=== PATIENT | female | born 1950 | race Caucasian/White ===

== ENCOUNTER → 2021-11-12 | Outpatient (CLI) | payer MEDICARE, SELFPAY ==
--- NOTE | 2021-11-12 17:38 | CT_ITS ---
STUDY: CT Chest W/O Contrast Injection 11/12/2021 7:34 PM REASON FOR EXAM: Female, 71 years old. COUGH Individualized dose optimization techniques were used for this CT. TECHNIQUE: Transaxial imaging was performed withoutIV contrast material. COMPARISON: None. FINDINGS: There are degenerative changes of the shoulders. There is no pneumothorax. There is no demonstrated pleural abnormality. Nodular infiltrate of the right and left upper lobe. Bronchiectasis and mucous filling the right and left midlung. There are calcifications of the coronary arteries. Normal mediastinum. Normal hilar regions. Normal pulmonary arteries. There is atherosclerotic calcification of the aortic arch with tortuosity and elongation of the aortic arch and descending thoracic aorta. There are multi-level degenerative changes of the thoracic spine. There are no acute findings of the upper abdomen. CT/Chest without Contrast IMPRESSION: Nodular infiltrate of the right and left upper lobe. Bronchiectasis and mucous filling the right and left midlung. Electronically Signed: Ken Crook MD at 19:36 EDT ,
== END | disposition home or self-care (01) ==
PROVIDERS: Visit Provider Internal Medicine Pulmonary Disease
DX: R05.9 Cough, unspecified (principal); J30.1 Allergic rhinitis due to pollen
CPT/HCPCS: 71250

== ENCOUNTER 2022-01-05 10:49 | Day surgery (SDC) | payer MEDICARE, SELFPAY ==
[2022-01-05] VITALS (7 sets, daily range): BP systolic 101–127; BP diastolic 56–70; PULSE 72–86; RESP 16; TEMP 36.4–37.1; O2SAT 97–100; BMI 20.2
--- NOTE | 2022-01-05 | FLU_PTH ---
PATIENT: CRISTIAN HARRIS LOC: EN U#:[id number] AGE/SX: 71/F ROOM: RE01/05/[address]: Dr. Zachary Schneider MD : 1950 BED: DIS: 01/05/2022 SPEC #: [id number] RECD: 01/05/22 13:10 STATUS: SYDNEY ELENA #: [id number] ÁNGEL: 01/05/22 00:[address]: Zachary Schneider V DEPT: CYTOLOGY RECD BY: Kay Perla ENTERED: 01/06/22 08:05 SP TYPE: Fluid OTHR DR: No Primary Care Phys Tissues: A - Bronchus of right upper lobe B - Bronchus of right middle lobe Procedures: Special Stain Group II Special Stain Group I Surgery Specimen Level IV AFB Stain (control) GMS Stain (control) Cytospin Fluid HEADER OPERATION: Bronchoscopy, BAL PRE-OP DIAGNOSIS: Bronchiectasis, bronchospasm, allergic rhinitis TISSUE SUBMITTED: A ? RUL BAL fluid, B ? RML BAL fluid DIAGNOSIS CYTOLOGY A. RUL, BAL fluid (cytospin and cell block): Negative for malignant cells. Acute inflammation. See comment. B. RML, BAL fluid (cytospin and cell block): Negative for malignant cells. Acute inflammation. See comment. SJ:stewart 01/07/2022 COMMENT A & B. Special stains for acid fast bacilli and fungi are negative for organisms; matched controls are appropriate. Correlation with clinical, radiologic findings and appropriate follow up are necessary. CYTOLOGY STUDY Slides are reviewed. CYTOLOGY GROSS A - Received is 25 ml of opaque cloudy fluid labeled with the patient's name and and designated per the requisition as RUL BAL. Submitted for cytology preparation including cell block. B - Received is 35 ml of light pink mucoidy cloudy fluid labeled with the patient's name and and designated per the requisition as RML BAL. Submitted for cytology preparation including cell block. / stewart 01/06/2022 TC:2 CPT: 53979 x2, 86144 x2, 47476 x4
[2022-01-05] MEDS: Lactated Ringers 1,000 ML 15 ML IV (11:21)
[2022-01-05] MEDS: Lidocaine 2% (5ml sdv) 5 ML VIAL.MPF (12:07)
[2022-01-05] MEDS: Phenylephrine 0.25% 15 ML NASAL.SRY 15 SPRAY NASAL (12:07)
--- NOTE | 2022-01-05 12:51 | OP.BRONCH_ITS ---
Patient Name: Kimi Langley Procedure Date: 01/05/2022 11:48 AM Date of : 1950 Age: 71 Procedure: Bronchoscopy Indications: Chronic cough with abnormal CT Providers: Zachary Schneider MD Referring MD: Zachary Schneider MD Medicines: Lidocaine applied to nares and subglottic space, None Complications: No immediate complications Procedure: Pre-Anesthesia Assessment: - A History and Physical has been performed. Patient meds and allergies have been reviewed. The risks and benefits of the procedure and the sedation options and risks were discussed with the patient. All questions were answered and informed consent was obtained. Patient identification and proposed procedure were verified prior to the procedure by the physician and the nurse in the procedure room. Mental Status Examination: normal. Airway Examination: normal oropharyngeal airway. Respiratory Examination: clear to auscultation. CV Examination: normal. ASA Grade Assessment: II - A patient with mild systemic disease. After reviewing the risks and benefits, the patient was deemed in satisfactory condition to undergo the procedure. The anesthesia plan was to use monitored anesthesia care (MAC). Immediately prior to administration of medications, the patient was re-assessed for adequacy to receive sedatives. The heart rate, respiratory rate, oxygen saturations, blood pressure, adequacy of pulmonary ventilation, and response to care were monitored throughout the procedure. The physical status of the patient was re-assessed after the procedure. After I obtained informed consent, the scope was passed under direct vision. Throughout the procedure, the patient's blood pressure, pulse, and oxygen saturations were monitored continuously. The bronchoscope was introduced through the left nostril and advanced to the tracheobronchial tree of both lungs. The procedure was accomplished without difficulty. Findings: The endotracheal tube is in good position. The visualized portion of the trachea is of normal caliber. The moira is sharp. The tracheobronchial tree was examined to at least the first subsegmental level. Bronchial mucosa and anatomy are normal; there are no endobronchial lesions, and many secretions. The nasopharynx/oropharynx appears normal. The larynx appears normal. The vocal cords appear normal. The subglottic space is normal. The trachea is of normal caliber. The moira is sharp. The tracheobronchial tree was examined to at least the first subsegmental level. Bronchial mucosa and anatomy are normal; there are no endobronchial lesions, and many secretions. Impression: - The airway examination was normal. - The airway examination was normal. - No specimens collected. - The airway examination was normal. Recommendation: - Await BAL results. MD Zachary Acevedo MD 01/05/2022 12:51:05 PM This report has been signed electronically. Number of Addenda: 0 Note Initiated On: 01/05/2022 11:48 AM
[2022-01-05 13:14] LABS: Cytology, Body Fluid / CSF SEE PATHOLOGY REPORT
[2022-01-05 13:17] LABS: Cytology, Body Fluid / CSF SEE PATHOLOGY REPORT
[2022-01-05 15:19] LABS: Appearance/Body Fluid TURBID; Color/Body Fluid COLORLESS; Source- Body Fluid BRONCHIAL LAVAGE
[2022-01-05 15:23] LABS: Red Cell Count/Body Fluid 200 /mm3; White Blood Count/Body Fluid 3680 /mm3
[2022-01-05 15:24] LABS: Color/Body Fluid COLORLESS; Source- Body Fluid BRONCHIAL LAVAGE
[2022-01-05 15:25] LABS: Appearance/Body Fluid TURBID; Red Cell Count/Body Fluid 448 /mm3
[2022-01-05 15:26] LABS: White Blood Count/Body Fluid 1056 /mm3
[2022-01-05 15:53] LABS: Body Fluid QC Type(s) BF5Q; Lymphocytes 8 %; Neutrophil (Segs) 92 %
[2022-01-05 15:58] LABS: Lymphocytes 5 %; Macrophages 3 %; Neutrophil (Segs) 92 %
[2022-01-05 15:59] LABS: Body Fluid QC Type(s) BF5Q
[2022-01-06 13:19] LABS: Pathologist Comment/Body Fluid Reviewed
== END 2022-01-05 13:23 | disposition home or self-care (01) ==
LOC: EN 10:49 → AC 10:50
PROVIDERS: Referring Provider Internal Medicine Pulmonary Disease; Visit Provider Internal Medicine Pulmonary Disease
PROC: 0BJ08ZZ Inspection of Tracheobronchial Tree, Via Natural or Artificial Opening Endoscopic (ICD-10-PCS; CPT 31622; principal; 2022-01-05 11:45)
DX: J98.4 Other disorders of lung (principal); J47.9 Bronchiectasis, uncomplicated; J98.01 Acute bronchospasm; Z78.0 Asymptomatic menopausal state
CPT/HCPCS: 31624; 87015; 87070; 87077; 87101; 87116; 87205; 87206; 88108; 88305; 88312; 88313; 89050; J7120

== ENCOUNTER → 2022-05-27 | Outpatient (CLI) | payer MEDICARE, SELFPAY | END | disposition home or self-care (01) | LOC: LABSPEC 13:01 | PROVIDERS: Referring Provider Internal Medicine Pulmonary Disease; Visit Provider Internal Medicine Pulmonary Disease | DX: J47.9 Bronchiectasis, uncomplicated (principal) | CPT/HCPCS: 87015; 87070; 87116; 87205; 87206 ==

== ENCOUNTER → 2022-06-01 | Outpatient (CLI) | payer MEDICARE, SELFPAY | END | disposition home or self-care (01) | PROVIDERS: Referring Provider Internal Medicine Pulmonary Disease; Visit Provider Internal Medicine Pulmonary Disease | DX: J47.9 Bronchiectasis, uncomplicated (principal) | CPT/HCPCS: 87015; 87116; 87206 ==